=== PATIENT | female | born 1965 | race Caucasian/White ===

== ENCOUNTER → 2016-11-13 | Outpatient (CLI) | payer BC | END | disposition home or self-care (01) | LOC: CFH 09:29 | PROVIDERS: ATTEND Physician Assistant | DX: M25.511 Pain in right shoulder (principal); N64.4 Mastodynia; R07.81 Pleurodynia; R92.2 Inconclusive mammogram; G47.00 Insomnia, unspecified; E03.9 Hypothyroidism, unspecified; E78.5 Hyperlipidemia, unspecified; E55.9 Vitamin D deficiency, unspecified; J45.909 Unspecified asthma, uncomplicated; R19.7 Diarrhea, unspecified; Z83.3 Family history of diabetes mellitus; Z80.3 Family history of malignant neoplasm of breast ==